=== PATIENT | female | born 1945 | race Caucasian/White ===

== ENCOUNTER 2024-05-04 06:14 | Day surgery (SDC) | payer MEDICARE, OTHER ==
[2024-05-03 11:15] VITALS: BMI 25.9
[2024-05-04 07:45] LABS: #Basophils Less than 0.03 10x3/uL (0.0-0.2); %Basophils 0.4 % (0.0-1.0); %Eosinophils 1.6 % (0.0-10.0); %Lymphocytes 38.6 % (21.0-51.0); %Monocytes 9.6 % (0.0-10.0); %Neutrophils 49.6 % (42.0-75.0); Hematocrit 41.3 % (36.0-47.0); Hemoglobin 13.2 g/dL (12.0-16.0); Mean Corpuscular Hemoglobin 28.1 pg (27.0-31.0); Mean Corpuscular Volume 88.1 fL (78.0-98.0); Platelet Count 271 10x3/uL (130-400); RBC Distribution Width 13.5 % (11.5-14.5); Red Blood Cell (RBC) Count 4.69 mill/uL (4.20-5.40)
[2024-05-04] MEDS ORDERED: Iopamidol 30 ML ONE (08:04)
[2024-05-04] MEDS ORDERED: Indomethacin 50 MG SUPP ONE (08:05)
[2024-05-04] MEDS ORDERED: LevoFLOXacin D5W 500 mg (100 mL) BAG ONE (08:07)
[2024-05-04] MEDS ORDERED: Lidocaine 2% PF 5 ML VIAL ONE (08:12)
[2024-05-04] MEDS ORDERED: Dexamethasone 4 mg/ml Vial ONE (08:12)
[2024-05-04] MEDS ORDERED: fentaNYL PF 100 MCG/2 ML SYRINGE ONE (08:12)
[2024-05-04] MEDS ORDERED: Rocuronium Bromide 10 MG/ML (10ML VIAL) ONE (08:12)
[2024-05-04] MEDS ORDERED: Ondansetron PF 4 MG/2 ML Vial ONE (08:12)
[2024-05-04 08:52] LABS: ALT (SGPT) 59 U/L (8-55); AST (SGOT) 45 U/L (5-34); Albumin 3.8 g/dL (3.4-4.8); Alkaline Phosphatase 250 U/L (40-110); Anion Gap 12 mmol/L (10-20); BUN (Urea Nitrogen) 25 mg/dL (9.8-20.1); Bilirubin, Total 0.6 mg/dL (0.2-1.2); Calc. Creatinine Clearance 45 mL/min (70-130); Calcium 9.4 mg/dL (7.8-10.44); Carbon Dioxide 24 mmol/L (23-31); Chloride 108 mmol/L (98-107); Estimated GFR 67; Globulin 3.3 g/dL (2.4-3.5); Glucose 92 mg/dL (83-110); Lipase 37 U/L (8-78); Potassium 3.8 mmol/L (3.5-5.1); Protein, Total 7.1 g/dL (5.8-8.1); Sodium 140 mmol/L (136-145)
[2024-05-04] MEDS ORDERED: PROPOFOL 200 MG/20 ML VIAL ONE (08:53)
[2024-05-04] MEDS ORDERED: SUGAMMADEX SODIUM 200 MG/2 ML VIAL ONE (09:01)
[2024-05-04] MEDS ORDERED: hydrALAZINE 20 MG/ML VIAL ONE (10:33)
[2024-05-04] MEDS ORDERED: Promethazine HCl 25 MG/ML VIAL ONE (10:46)
== END 2024-05-04 11:47 | disposition home or self-care (01) ==
LOC: SDC 06:14
PROVIDERS: ATTEND Internal Medicine Gastroenterology
PROC: 0FF98ZZ Fragmentation in Common Bile Duct, Via Natural or Artificial Opening Endoscopic (ICD-10-PCS; principal; 2024-05-04)
PROC: 0F798ZZ Dilation of Common Bile Duct, Via Natural or Artificial Opening Endoscopic (ICD-10-PCS; 2024-05-04)
DX: K80.62 Calculus of gallbladder and bile duct with acute cholecystitis without obstruction (principal); K21.9 Gastro-esophageal reflux disease without esophagitis; Z79.899 Other long term (current) drug therapy
CPT/HCPCS: 43262; 43265; 74330; 80053; 83690; 85025; C1725; J0360; J1100; J1956; J2405; J2550; Q9967; J2704

== ENCOUNTER 2024-05-18 05:58 | Day surgery (SDC) | payer MEDICARE, OTHER ==
[2024-05-17 11:11] VITALS: BMI 25.9
[2024-05-18] MEDS ORDERED: Bupivacaine 0.25% HCL 30 ML VIAL ONE (08:14)
[2024-05-18] MEDS ORDERED: Indocyanine Green 25 MG/10 ML VIAL ONE (08:14)
[2024-05-18] MEDS ORDERED: EPINEPHrine 1 MG/ML VIAL ONE (08:14)
[2024-05-18] MEDS ORDERED: Dexamethasone 4 mg/ml Vial ONE (08:39)
[2024-05-18] MEDS ORDERED: fentaNYL PF 100 MCG/2 ML SYRINGE ONE (08:39)
[2024-05-18] MEDS ORDERED: Ondansetron PF 4 MG/2 ML Vial ONE (08:39)
[2024-05-18] MEDS ORDERED: Rocuronium Bromide 10 MG/ML (10ML VIAL) ONE (08:39)
[2024-05-18] MEDS ORDERED: Lidocaine 1% PF 5 ML VIAL ONE (08:39)
[2024-05-18] MEDS ORDERED: PROPOFOL 20 ML ONE (08:39)
[2024-05-18] MEDS ORDERED: Sodium Chloride 0.9% 100 ML ONE (08:44)
[2024-05-18] MEDS ORDERED: cefOXitin 2 GM VIAL ONE (08:44)
[2024-05-18] MEDS ORDERED: SUGAMMADEX SODIUM 200 MG/2 ML VIAL ONE (09:27)
[2024-05-18] MEDS ORDERED: HYDROcodone/Acetaminophen 5/325 mg Tablet ONE (11:30)
== END 2024-05-18 12:22 | disposition home or self-care (01) ==
LOC: SDC 05:58
PROVIDERS: ATTEND Surgery
PROC: 0FT44ZZ Resection of Gallbladder, Percutaneous Endoscopic Approach (ICD-10-PCS; principal; 2024-05-18)
DX: K80.64 Calculus of gallbladder and bile duct with chronic cholecystitis without obstruction (principal); Z90.710 Acquired absence of both cervix and uterus; Z79.899 Other long term (current) drug therapy
CPT/HCPCS: 47562; C1889; J0171; J0665; J0694; J1100; J2405; J2704; S2900; 88304